=== PATIENT | female | born 1925 | race Caucasian/White ===

== ENCOUNTER 2016-06-30 05:40 | Inpatient (IN) ==
[2016-06-30] MEDS ORDERED: LR 1,000 ML ONE (06:10)
[2016-06-30] MEDS ORDERED: PEPCID ONE (06:26)
[2016-06-30] MEDS ORDERED: SOLU-CORTEF IV ONE (06:45)
[2016-06-30] MEDS ORDERED: XYLOCAINE-MPF 2% ONE (09:01)
--- NOTE | 2016-06-30 09:57 | Diag Imaging Result Document ---
PROCEDURE NAME: ECTOR ABDOMEN - 06/30/2016 ABDOMEN: COMPARISON: 05/09/2014. FINDINGS: There is a stable IVC filter. No bowel obstruction or free air. Numerous calcifications in the spleen are probably granulomas. IMPRESSION: No acute disease.
[2016-06-30] MEDS: SODIUM CHLORIDE 0.9% INJ SCH (10:50)
[2016-06-30] MEDS: PROTONIX IV SCH (10:50)
[2016-06-30] MEDS: CARAFATE LIQUID PO SCH ×2 (10:50→14:50)
[2016-06-30] MEDS: FLAGYL 250 MG/NS 250 MG/50 ML IVPB IV SCH ×2 (10:51→14:50)
[2016-06-30] MEDS ORDERED: HEPARIN 25,000 UNITS/D5W 25,000 UNIT/250 ML IV.SOLN IV SCH (11:00)
[2016-06-30 11:11] LABS: HEMATOCRIT 47.5 % (37.0-47.0); HEMOGLOBIN 14.7 g/dL (12.0-16.0); MCH 29.1 PG (27-31); MCHC 30.9 g/dL (33-37); MCV 93.9 FL (81-99); MPV 10.9 FL (7.4-10.4); RBC 5.06 XMIL (4.2-5.4)
[2016-06-30 11:17] LABS: INR 1.04
[2016-06-30] MEDS: LEVAQUIN 750 MG/D5W 750 MG/150 ML IVPB IV SCH (11:30)
[2016-06-30 11:41] LABS: AGAP 13; ALBUMIN 3.5 g/dL (3.5-5.0); ALKALINE PHOSPHATASE 95 U/L (32-104); BUN 14 mg/dL (8-22); CALCIUM 9.3 mg/dL (8.8-10.2); CHLORIDE 104 mmol/L (98-107); COSMO 291; GOT 16 U/L (10-30); GPT 11 U/L (10-36); POTASSIUM 4.1 mmol/L (3.5-5.1); SODIUM 145 mmol/L (136-145); TCO2 28 mmol/L (25-35); TOTAL BILIRUBIN 0.29 mg/dL (0.20-1.00); TOTAL PROTEIN 6.8 g/dL (6.3-8.3)
[2016-06-30 12:19] LABS: MAGNESIUM 1.7 mg/dL (1.5-2.7)
[2016-06-30] MEDS ORDERED: DIPRIVAN 1% ONE (12:20)
--- NOTE | 2016-06-30 13:33 | HISTORY AND PHYSICAL ---
CHIEF COMPLAINT: Abdominal pain. HISTORY OF PRESENT ILLNESS: Mrs. Neri is a 89-year-old female with multiple medical problems who was here for outpatient colonoscopy by Dr. Aliza Arreola. She has been having abdominal pain over the past few days and weeks and she ultimately had colonoscopy for definitive evaluation. She also has a history of PE and DVT with recent diagnosis of 2 DVTs in the right lower extremity, she has had a IVC filter placed as well. She was scheduled to start anticoagulation but needed a colonoscopy 1st to evaluate for any type of gastrointestinal bleeding. Colonoscopy revealed diverticulitis as well as gastric AVMs. Dr. Arreola called us and asked us to admit Mrs. Neri to the hospital for diverticulitis and anticoagulation management. Currently she is on the floor. Her vitals are stable. Labs have been ordered and are pending. With the exception of her abdominal pain, she has no other acute complaints at this time. PAST MEDICAL HISTORY: 1. Type 2 diabetes. 2. Vascular dementia. 3. Hypertension. 4. Hyperlipidemia. 5. CAD. 6. Vitamin D deficiency. 7. Polymyalgia rheumatica. 8. Chronic venous insufficiency. 9. Hypertension. 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 SURGICAL HISTORY: Is carotid endarterectomy, appendectomy, hysterectomy, ear surgery, thyroidectomy, ankle surgery, cataract surgery, section. SOCIAL HISTORY: Patient lives at [facility]. She has a remote history of tobacco abuse. She denies any tobacco, alcohol or drug use currently. REVIEW OF SYSTEMS: Fourteen-point review of systems was obtained and found to be negative with the exception of the HPI. HOME MEDICATIONS: Currently being compiled. ALLERGIES: To Demerol. PHYSICAL EXAMINATION: VITAL SIGNS: Blood pressure is 156/54, heart rate 78, respiratory rate 16, O2 saturation 95% on 2 L, temperature is 97.9 degrees. GENERAL: This is an elderly 89-year-old female lying in hospital bed in no acute distress. NEUROLOGIC: The patient is awake, alert and oriented. She follows commands without focal deficits. HEENT: Head is atraumatic and normocephalic. Her pupils are equal, round, reactive to light. Oral mucosa is moist. Trachea is midline. No JVD or carotid bruits. CHEST: Clear to auscultation bilaterally. CV: Regular rate and rhythm. S1-S2 is noted, 2/6 systolic ejection murmur noted. GI: Left lower quadrant tenderness to palpation. Overall belly soft, nondistended, nontender. Bowel sounds are active. EXTREMITIES: No edema, clubbing or cyanosis. Pulses are diminished but palpable bilaterally. DIAGNOSTIC DATA: Is all pending. ASSESSMENT AND PLAN: 1. Diverticulitis: Patient has already been placed on Levaquin and Flagyl per Dr. Arreola's orders. We will go ahead and check blood cultures and continue antibiotics. Check a full set of labs. 2. Gastric arterial venous malformations: Per management Dr. Arreola. The patient has been placed on Protonix IV b.i.d. 3. Recent diagnosis of deep vein thrombosis: The patient will be placed on a heparin drip with standard protocol and will monitor her bleeding times and any signs of bleeding closely. 4. Type 2 diabetes: Will add pattern sugars and sliding scale insulin. Check a hemoglobin A1c as well. 5. Hypertension: Chronic and stable, continue home medications once they have been compiled. 6. Coronary artery disease: Chronic and stable. Continue home medications, patient denies any chest pain or shortness of breath. 7. Hyperlipidemia: Chronic and stable, continue home medications once they have been compiled. 8. Polymyalgia rheumatica: Chronic and stable, continue home medications once they have been compiled. 9. Further recommendations to follow once full labs and diagnostics have returned. 10. Deep vein thrombosis prophylaxis will be provided with heparin drip. Further recommendations to follow. Dictated by JESÚS Leach for Abilio Power MD cc: JESÚS Leach MD
[2016-06-30] MEDS ORDERED: MORPHINE ONE (14:41)
[2016-06-30] MEDS ORDERED: HEPARIN IV ONE (16:51)
[2016-06-30] MEDS: MORPHINE IV PRN (20:24)
--- NOTE | 2016-06-30 21:51 | Diag Imaging Result Document ---
PROCEDURE NAME: ABDOMEN/PELVIS W/O CONTRAST - 06/30/2016 CT UROGRAM WITHOUT CONTRAST: FINDINGS: There is a fairly large bulla in the left upper lobe. There is worsened atelectasis or pneumonia in the left lower lobe compared to 05/07/2014. There are numerous granulomata in the spleen. There is a fairly high density perisplenic fluid collection which was not present at the time of the previous study of 05/07/2014. This may represent blood. It extends in the left pericolic gutter to slightly below the iliac crest. There are scattered granulomata in the liver. There is a small right pleural effusion which is also somewhat hyperdense. This was not present at the time of the previous study. There is an 18 mm right ovarian cyst. There is a vena cava filter. 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 This demonstrates a maximum diameter of 2.3 cm. There are no acute bony abnormalities. IMPRESSION: Hemoperitoneum. Worsened atelectasis or pneumonia left lower lobe. Small right pleural effusion. The findings were discussed with Dr. Arreola by telephone at 2119 hours.
--- NOTE | 2016-06-30 22:06 | CONSULTATION ---
DATE OF CONSULTATION: 06/30/2016 REFERRING PHYSICIAN: Abilio Power M.D. PRIMARY CARE PROVIDER: Kylee Siddiqui M.D. INDICATION FOR CONSULTATION: 1. Abdominal pain. 2. Diverticulitis. 3. Gastrointestinal bleeding secondary to gastric and colonic AVMs. HISTORY OF PRESENT ILLNESS: The patient is an 89-year-old white female who was evaluated in the hospital on 05/10/2014. At that time, she presented with rectal bleeding following a fall. She was on Coumadin and her level was supratherapeutic. Because of her recent fall episode and the risk of recurrent DVT, she was empirically treated for diverticulitis and received Anusol suppositories for presumed hemorrhoidal bleeding. Her symptoms resolved after a 5 day course of Anusol HC suppositories as well as antibiotics. She did well until November 2015 when she presented with dysphagia, melena and pneumonia. She was to have cricopharyngeal achalasia on a modified barium swallow. After her pneumonia was successfully treated, she underwent EGD with dilation. There was erosive gastritis and nonbleeding AVMs with no source of bleeding found. Her esophagus was dilated with 54-Tajik with interval resolution of her dysphagia. We recommended at that time, that her anticoagulation be resumed 72 hours postprocedure. Unfortunately, she was discharged to rehabilitation and her anticoagulation was never resumed. She presented to the office on 06/27/2016 with dysphagia, epigastric pain, left upper with lower quadrant pain, heartburn and indigestion. She has been found to have 2 DVTs in the right lower extremity. Because of the need to resume her anticoagulation, we were asked to perform endoscopic evaluation. Today, she underwent an EGD and colonoscopy. On EGD, she was found to have an esophageal diverticulum, visible bile reflux, Schatzki's ring without obstruction, erosive gastritis and a nonbleeding antral ulcer. She also had duodenitis. Biopsies were taken from the gastric and duodenal mucosa. In the colon, her terminal ileum, ileocecal valve, and appendiceal orifice were normal. In the ascending colon, she had 2 large hyperemic AVMs. Although they were not bleeding, they were cauterized. In the transverse colon, she had an actively bleeding AVM that was cauterized with black wire. Upon withdrawing the scope into the left colon, she had evidence of acute diverticulitis. Postprocedure, she complained of 8 to 10/10 left-sided abdominal pain. After she passed gas, the abdominal pain improved considerably. A KUB was obtained and there was no evidence of free air or obstruction. She continues to have abdominal pain on the left side in the area where acute diverticulitis was identified. She is admitted for further management. PAST MEDICAL HISTORY: 1. Diabetes mellitus type 2. 2. Vascular dementia. 3. Hearing loss. 4. Hypertension. 5. Hyperlipidemia. 6. Coronary artery disease. 7. Vitamin D deficiency. 8. Polymyalgia rheumatica. 9. Chronic venous insufficiency. 10. Hypertension. 11. DVT. 12. PE. 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 14. Diverticulosis. 15. Diverticulitis. 16. Hemorrhoids. 17. Depression. 18. GERD. 19. Metabolic encephalopathy. 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 PAST SURGICAL HISTORY: 1. Carotid endarterectomy. 2. Appendectomy. 3. Hysterectomy. 4. Ear surgery. 5. Thyroidectomy. 6. Ankle surgery. 7. Cataract surgery. 8. . SOCIAL HISTORY: The patient previously smoked, but has not smoked for a number of years. She denies alcohol or recreational drug use. REVIEW OF SYSTEMS: Since admission, is notable for left upper quadrant pain when she sits in a chair. When she is lying at rest, she reports minimal abdominal discomfort. MEDICATION ALLERGIES: Demerol. HOME MEDICATIONS: 1. Carafate. 2. Prednisone. 3. Potassium chloride. 4. MiraLAX. 5. Protonix. 6. Centrum multivitamin. 7. Theravite. 8. Elocon cream. 9. Jadiel antifungal cream. 10. Calmoseptine ointment. 11. Melatonin. 12. Icar-C. 13. Lasix. 14. Vitamin B12. 15. DuoNeb. 16. Tylenol. PHYSICAL EXAMINATION: Vital Signs: Blood pressure is 129/51, pulse 74, respirations 16, temperature of 97.4 degrees. HEENT: Negative for jaundice. Her conjunctivae are normal. Her oropharyngeal mucosal membranes are slightly dry. Pulmonary examination: Lungs are clear to auscultation with normal respiratory effort. Cardiovascular Examination: Reveals regular rate and rhythm with no gallops or rubs. A 2/6 systolic ejection murmur. Abdominal Examination: Reveals normoactive bowel sounds. The abdomen is soft, with persistent left upper quadrant tenderness. There is no rebound or guarding. It should be noted that her abdomen is considerably less distended than postprocedure. There is minimal abdominal distention and she is almost back to her baseline examination with the exception of mild left upper quadrant pain. She has no obvious peritoneal signs and is resting comfortably in bed. Extremities: Bilaterally are negative for cyanosis, clubbing, or edema. OBJECTIVE DATA: Reveals a hemoglobin of 14.7 with hematocrit of 47.1 and a white count of 8.0. She has 249,000 platelets. Her PT is 11 with an INR of 1.04. Her PTT is 27.2. Sodium is 145, potassium 4.1, chloride 104, CO2 28, BUN 14, creatinine 0.5 with a glucose of 133, calcium is 9.3. Total bilirubin 0.29, AST 16, ALT 11, alkaline phosphatase 95, total protein 6.8 , and albumin 3.5. Her plasma lactate is 0.8. Her CRP is mildly elevated at 5.45. Her magnesium is 1.7. IMPRESSION: 1. Mild acute diverticulitis. 2. Colonic and gastric arteriovenous malformations. 3. Deep vein thrombosis. 4. Left upper quadrant pain postprocedure. RECOMMENDATIONS: 1. She was placed on Levaquin and Flagyl pending her endoscopic evaluation. I would continue this to complete a 10 day course of antibiotics. 2. Because of her known ulcer disease, she has been placed on Protonix 40 mg q.12 hours. When she is ready to go home, I would place her on oral omeprazole or oral Protonix twice a day for 6 weeks and then resume once a day dosing. 3. She was also placed on Carafate suspension 1 g p.o. 4 times a day. At discharge I will place her on Carafate tablets 1 g 4 times a day which may be crushed and mixed in applesauce. 4. I suspect her abdominal pain is due to the diverticulitis. However, if her abdominal pain persists overnight, I would have a low threshold for obtaining a CT scan of the abdomen and pelvis. Her KUB was negative for perforation. However, she is extremely resistant to moving or getting out of the bed. This is an interval change for this patient which is somewhat concerning. Clinically, she has no physical stigmata of an acute abdomen. I will encourage the nurses to rotate her from side to side to help with dispersion of the abdominal gas. 5. Please monitor serial hemoglobin and hematocrit. 6. I agree with the heparin drip as she has 2 active DVTs in the right lower extremity. When we are certain that she has no other acute GI issues, I would transition her to Xarelto as an outpatient. cc: MD Abiloi Pedraza MD Kathy J. Sparacino, MD Heather Shah, MD MTDD
[2016-06-30 22:25] LABS: MANUAL DIFF NEEDED? NO
[2016-06-30 22:27] LABS: BASO% 0.3 % (0.0-0.8); EOS# 0.05 X1000 (0.0-0.7); EOS% 0.5 % (0.0-10.0); HEMATOCRIT 44.2 % (37.0-47.0); HEMOGLOBIN 13.8 g/dL (12.0-16.0); IMM GRAN# 0.04 X1000 (0.0-0.04); IMM GRAN% 0.4 % (0.0-0.5); LYMPH# 1.87 X1000 (1.2-3.4); LYMPH% 20.1 % (20.5-51.1); MCH 29.1 PG (27-31); MCHC 31.2 g/dL (33-37); MCV 93.2 FL (81-99); MONO# 0.98 X1000 (0.11-0.59); MONO% 10.5 % (1.7-9.3); MPV 10.9 FL (7.4-10.4); NEUT% 68.2 % (42.2-75.2); PLT 252 X1000 (130-400); RBC 4.74 XMIL (4.2-5.4)
[2016-06-30 22:38] LABS: INR 1.08; PROTIME 11.4 Seconds (9.2-11.7); PTT 35.1 Seconds (22.0-36.0)
[2016-07-01] MEDS: MORPHINE IV PRN ×2 (02:18→06:12)
[2016-07-01 02:26] LABS: MANUAL DIFF NEEDED? NO
[2016-07-01 02:28] LABS: BASO% 0.5 % (0.0-0.8); EOS% 0.9 % (0.0-10.0); HEMOGLOBIN 13.4 g/dL (12.0-16.0); IMM GRAN# 0.02 X1000 (0.0-0.04); IMM GRAN% 0.2 % (0.0-0.5); LYMPH# 2.09 X1000 (1.2-3.4); LYMPH% 19.7 % (20.5-51.1); MCH 29.1 PG (27-31); MCHC 31.2 g/dL (33-37); MCV 93.5 FL (81-99); MONO# 1.15 X1000 (0.11-0.59); MONO% 10.8 % (1.7-9.3); MPV 10.5 FL (7.4-10.4); NEUT% 67.9 % (42.2-75.2); PLT 224 X1000 (130-400)
[2016-07-01] MEDS: CARAFATE LIQUID PO SCH ×5 (03:28→21:02)
[2016-07-01] MEDS: FLAGYL 250 MG/NS 250 MG/50 ML IVPB IV SCH ×5 (03:30→21:02)
[2016-07-01] MEDS: PROTONIX IV SCH ×2 (04:25→15:35)
[2016-07-01 06:36] LABS: HEMATOCRIT 43.2 % (37.0-47.0); HEMOGLOBIN 13.2 g/dL (12.0-16.0); MCH 29.1 PG (27-31); MCHC 30.6 g/dL (33-37); MCV 95.2 FL (81-99); MPV 11.1 FL (7.4-10.4); RBC 4.54 XMIL (4.2-5.4)
[2016-07-01 06:53] LABS: AGAP 13; BUN 17 mg/dL (8-22); CALCIUM 9.8 mg/dL (8.8-10.2); CHLORIDE 103 mmol/L (98-107); COSMO 284; POTASSIUM 3.4 mmol/L (3.5-5.1); SODIUM 142 mmol/L (136-145); TCO2 26 mmol/L (25-35)
--- NOTE | 2016-07-01 07:36 | CONSULTATION ---
DATE OF CONSULTATION: 07/01/2016 REQUESTING PHYSICIAN: Dr. Aliza Arreola. REASON FOR CONSULTATION: Consult concerning possible splenic bleed. HISTORY OF PRESENT ILLNESS: An 89-year-old female with multiple medical problems initially presenting for an outpatient colonoscopy by Dr. Arreola. She had been having abdominal pain prior to her presentation, and that was the reason for her colonoscopy. During the colonoscopy, it was found that she had some mild diverticulitis as well as some gastric AVMs. When she was admitted to the floor afterwards for treatment of her diverticulitis, she did have increased abdominal pain and subsequently had a CT scan. There was some free fluid in her abdomen concerning for hemoperitoneum and there was some concern that she might have a splenic laceration, although there is no active injury noted on the CT scan to the spleen. The patient was started on serial hematocrits which have been relatively stable. Her vital signs have been stable. She did initially have a heparin drip that was stopped. This was because she has had a history of DVT and PE, although, she is status post IVC filter placement. She is still complaining of some pain on the left side, but it is difficult to get a full evaluation of the pain from the patient. There are family members in the room who give some more detail. I did discuss her case with Dr. Arreola over the phone. PAST MEDICAL HISTORY: Diabetes mellitus, type 2, vascular dementia, hypertension, hyperlipidemia, coronary artery disease, vitamin D deficiency, polymyalgia rheumatica, chronic venous insufficiency, history of DVT and PE, cricopharyngeal hypertrophy. PAST SURGICAL HISTORY: Carotid endarterectomy, appendectomy, hysterectomy, unspecified ear surgery, thyroidectomy, ankle surgery, cataract surgery, , and IVC filter placement. SOCIAL HISTORY: She lives at a [facility]. FAMILY HISTORY: Reviewed with patient but noncontributory. HOME MEDICATIONS: Reviewed and MAR reviewed. Of note, she is on Levaquin, Flagyl currently. ALLERGIES: Demerol. REVIEW OF SYSTEMS: A full 10-point review of systems obtained, negative except as specified in HPI. PHYSICAL EXAMINATION: Vital Signs: The patient is currently afebrile. Her vital signs have been stable. General: No acute distress. female, looks stated age. HEENT : Normocephalic, atraumatic. Pupils equal, round, reactive to light. Mucous membranes moist. Oropharynx benign. Neck supple. Trachea midline. Cardiovascular: Regular rate and rhythm. There is a mild systolic ejection murmur noted. Lungs grossly clear. Abdomen soft. Some left-sided abdominal tenderness but no peritoneal signs. Extremities: Moves all extremities. Neurologic: Grossly intact. Skin: No signs of jaundice. Vascular: All extremities perfused. LABORATORY: Most recent white blood cell count is 10. Most recent hematocrit 43. Most recent platelet count 224,000. IMAGING: CT scan independently reviewed and radiology report reviewed. ASSESSMENT AND PLAN: An 89-year-old female with diverticulitis, possible splenic laceration and multiple medical comorbidities. 1. Diverticulitis. At this time, she has been started on Levaquin and Flagyl per Dr. Arreola. She did have evidence on colonoscopy of mild active diverticulitis. The CT scan does not suggest a significant degree of complications from the diverticulitis, so I agree with the antibiotic regimen. Her white blood cell count is normal so could consider, once her abdominal pain starts to improve, transitioning over to p.o. antibiotics. 2. Possible splenic injury. At this time, I would hold on the heparin drip. We will trend her hematocrits at this time. I do not have an indication to intervene surgically. I do not see an active laceration noted to the spleen. I recommend monitoring for now. 3. History of recent deep venous thrombosis and pulmonary embolus. The patient was initially started on heparin drip. She does have an IVC filter so potentially hold off on any kind of anticoagulation given the protection with an IVC filter. We could essentially view this as a contraindication to anticoagulation and justification for the placement of the IVC filter, but she already has it. So, again, could hold off on anticoagulation if clinically needed. 4. Multiple medical comorbidities currently being managed by the hospitalist service. I appreciate the consult. I will continue to follow the patient with you. No immediate plans for surgical intervention. cc: Solo Guaman MD MTDD
--- NOTE | 2016-07-01 10:13 | Diag Imaging Result Doc PS360 ---
CHEST-PORTABLE - 07/01/2016 INDICATION: Pleural effusion COMPARISON: 02/25/2016 FINDINGS: Stable severe right hemidiaphragm elevation. Stable ill-defined atelectasis or fibrosis in the right upper lobe. This is also true for the left lung base. Heart size remains borderline enlarged. IMPRESSION: No change from prior. Nonspecific findings. Electronically signed by Russell Nielsen 07/01/2016 10:10 AM
--- NOTE | 2016-07-01 10:36 | PROGRESS NOTE ---
DATE: 07/01/2016 SUBJECTIVE: This patient is resting comfortably on the bed. Family members at the bedside. This patient is sleepy. Apparently, she received a dose of morphine in the morning and since then, she is resting. Surgery department and gastroenterology department are following this patient. OBJECTIVE: Vital Signs: Temperature 97.7 degrees, pulse 70, respiratory rate 18, blood pressure 119/50, oxygen saturation 93 on room air. HEENT: Head normocephalic. No trauma. PERRLA. Neck: Supple. No JVD. No masses. Central trachea. Chest: Clear to auscultation. No wheezing. No rales. Cardiovascular: RRR. A 2/6 systolic murmur. Abdomen: Soft. Mild tenderness to palpation at the level of the left lower quadrant. Nondistended. Positive bowel sounds. Extremities: No edema. No clubbing. No cyanosis. Neurological Examination: The patient is sleepy at the moment of my evaluation. As per the family members, she spent the whole might awake and she finally got some sleep today in the morning. Laboratory: WBC 9.4, hemoglobin 13.2, hematocrit 43.2, platelets 226,000. Sodium 142, potassium 3.4, chloride 103, bicarbonate 26, BUN 17, creatinine 0.5, glucose 87, calcium 9.8. ASSESSMENT AND PLAN: 1. Diverticulitis. We will continue with Levaquin and Flagyl per Dr. Arreola's orders. So far, the blood cultures have been negative. We will continue to monitor this. This patient has been placed nothing per oral. I will start this patient on gentle hydration. 2. Gastric arteriovenous malformation. Continue with Protonix. 3. Recent diagnosis of deep venous thrombosis. This patient has an inferior vena cava filter. She is not on anticoagulation at this moment. We have a CT scan of the abdomen that showed hemoperitoneum. We will monitor. 4. Type 2 diabetes. Continue with the same management. Her blood sugar has been stable today. Blood sugar is 87. 5. Hypertension. This is chronic and stable. Blood pressure is controlled. 6. History of coronary artery disease. She is not complaining of chest pain or shortness of breath. Continue to monitor. 7. Hyperlipidemia. Continue to monitor. 8. Polymyalgia rheumatica. She is not complaining of any problems at this moment related with polymyalgia rheumatica. We will monitor. 9. Deep vein thrombosis prophylaxis. This patient has an inferior vena cava filter. Also, she has a history of deep venous thrombosis. For now, we are not going to start any anticoagulation. 10. Known ulcer disease. Continue with Protonix. cc: Jorge Alberto Castellon MD
[2016-07-01] MEDS: D5 NS 1,000 ML IV SCH (11:03)
[2016-07-01 11:53] LABS: URINE SOURCE CATH
[2016-07-01 11:57] LABS: BILIRUBIN URINE NEGATIVE (NEGATIVE); BLOOD URINE LARGE (NEGATIVE); COLOR ORANGE; GLUCOSE URINE NEGATIVE (NEGATIVE); LEUKOCYTES URINE LARGE (NEGATIVE); NITRITE URINE NEGATIVE (NEGATIVE); PROTEIN URINE 200 mg/dL (NEGATIVE); SP GRAVITY URINE 1.022; TURBIDITY URINE TURBID (CLEAR); UROBILINOGEN URINE NORMAL (NORMAL)
[2016-07-01 12:13] LABS: UR EPITHELIAL CELLS >10 /HPF (<10); URINE BACTERIA NEGATIVE /HPF; URINE CULTURE NEEDED? YES; URINE MICRO REVIEW NEEDED? YES; URINE RBC TNTC /HPF (<10); URINE WBC TNTC /HPF (<10)
[2016-07-01 12:14] LABS: URINE CASTS NONE SEEN
[2016-07-01] MEDS: LEVAQUIN 750 MG/D5W 750 MG/150 ML IVPB IV SCH (12:14)
[2016-07-01] MEDS: SODIUM CHLORIDE 0.9% INJ SCH (15:35)
--- NOTE | 2016-07-01 22:09 | PROGRESS NOTE ---
DATE: 07/01/2016 SUBJECTIVE: The patient was seen earlier this evening on rounds. She states that the abdominal pain has resolved. She was in tears because she felt that she had done something wrong that caused her to be readmitted to the hospital. She notes that she frequently gets depressed when she is at the assisted. She denies chest pain, shortness of breath, nausea with vomiting and fever with chills. She complains of hunger and is asking for something to drink. Overall, she reports having a good day. Unfortunately, she has had no bowel movement this admission. PHYSICAL EXAM: General: She is in no acute distress but has a very flat affect this evening. She is easily tearful. Vital signs: Her blood pressure is 112/51, pulse 88, respiration 22, temperature of 97.6 degrees. Pulmonary: Lungs are clear to auscultation with normal expiratory effort. Cardiovascular Exam: Reveals regular rate and rhythm with occasional ectopy. There is a 2/6 systolic murmur. Abdomen: Soft with mild to moderate tenderness in the left mid and left lower quadrant. There is no rebound or guarding. She has minimal tenderness in the left upper quadrant. Extremities: Bilaterally are negative for cyanosis, clubbing or edema. Neurologic: She is alert and oriented x3. OBJECTIVE DATA: Reveals a hemoglobin of 13.2 with hematocrit of 43.2 and white count of 9.48. She has 226,000 platelets. Sodium is 142, potassium 3.4, chloride 103, CO2 26, BUN 17, creatinine 0.5 with a glucose of 87 and calcium of 9.8. RECOMMENDATION: 1. The patient had mild diverticulitis on colonoscopy. I recommend completion of a 10-day course of Levaquin and Flagyl and then stop. 2. She had gastric arterial venous malformations as well as gastritis on EGD. I would continue the Protonix. 3. She had hemoperitoneum with fluid around her spleen which is improved with conservative management. I will continue to monitor. Her hemoglobin has remained stable and her pain is better. 4. Constipation: The patient has had constipation since her colonoscopy. I would monitor for the next 1-2 days. She may require the assistance of MiraLAX. 5. The patient is asking for something to eat or drink. I would limit her intake to clear liquids pending evaluation from Dr. Guaman. 6. Await biopsy results. 7. Her blood count remains stable. I would continue serial testing. 8. I will consult with Dr. Ashly Lal tomorrow regarding her anticoagulation. At this time, I would continue to hold any anticoagulation given her bleeding. This event represents an absolute contraindications to anticoagulation in the future. 9. Her depression may need evaluation and treatment once this issue resolves. 10. Additional recommendations to follow based on her clinical course. 11. She will need clinic evaluation 4-6 weeks after hospital discharge. cc: Jorge Alberto Castellon MD MTDD
--- NOTE | 2016-07-01 23:53 | OPERATIVE NOTE ---
PROCEDURE DATE: 06/30/2016 REFERRING PHYSICIAN: Kylee Siddiqui M.D. INDICATION FOR PROCEDURE: 1. Dysphagia. 2. Heartburn. 3. Indigestion. 4. Abdominal pain. 5. Need to assess the gastrointestinal tract prior to anticoagulation. PROCEDURE PERFORMED: Esophagogastroduodenoscopy with biopsy. CONSENT: Informed consent was obtained from the patient prior to the procedure. The risks, benefits, and alternatives were discussed with the patient and her daughter. MEDICATIONS: The patient received monitored anesthesia care. PERFORMING PHYSICIAN: Aliza Arreola M.D. ASSISTANTS: 1. [facility] 2. Krystle Becerra RN. 3. Kylee Wilkerson CRNA. 4. Oziel Bateman M.D. (anesthesia). COMPLICATIONS: There were no complications. ESTIMATED BLOOD LOSS: 1-2 mL. SPECIMENS REMOVED: 1. In jar #1, there were duodenal biopsies. 2. In jar #2, there were gastric biopsies. FINDINGS: After sedation was achieved, the upper endoscope was inserted to the 2nd portion of the duodenum. The hypopharynx and tubular esophagus appeared endoscopically normal. 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 Throughout the entire intubation of the esophagus, there was visible reflux from the gastric lumen. There was a nonobstructive Schatzki ring at the GE junction which was measured at 40 cm from the incisors. There was a hiatal hernia that spanned from 40-44 cm. In the gastric lumen, there was erosive gastritis. There were scattered deep erosions in the antrum, fundus and body. There was a 9-10 mm superficial whitish based ulcer in the antrum with no stigmata of bleeding. The pylorus appeared endoscopically normal. In the duodenum, there was evidence of erythema and erosions consistent with duodenitis. After the exam was complete, biopsies were taken from the duodenal and gastric mucosa. Upon withdrawing of the scope, there were no gastric or esophageal varices. There was no Forrester esophagus. It should be noted that the biopsy sites were cauterized due to the need for anticoagulation postprocedure. IMPRESSION: 1. Midesophageal diverticulum. 2. Visible gastroesophageal reflux disease. 3. Schatzki ring. 4. Hiatal hernia. 5. Erosive gastritis. 6. Antral ulcer. 7. Duodenitis. RECOMMENDATION: 1. Await biopsy results. 2. Increase Protonix to 40 mg daily. She is currently taking a 20 mg dose. 3. Increase Carafate to 1 g p.o. 4 times a day for 12 weeks and then stop. 4. Will proceed with a colonoscopy as previously scheduled. cc: Kylee Siddiqui MD MTDD
[2016-07-02] MEDS: MORPHINE IV PRN ×4 (00:09→13:26)
--- NOTE | 2016-07-02 00:30 | OPERATIVE NOTE ---
PROCEDURE DATE: 06/30/2016 REFERRING PHYSICIAN: Dr. Kylee Siddiqui M.D. INDICATION FOR CONSULTATION: 1. Abdominal pain. 2. Rectal bleeding. PROCEDURE PERFORMED: Colonoscopy, with control of bleeding. CONSENT: Informed consent was obtained from the patient prior to the procedure. The risks, benefits, and alternatives were discussed with the patient and her daughter. MEDICATION: The patient received monitored anesthesia care. PERFORMING PHYSICIAN: Aliza Arreola M.D. ASSISTANTS: 1. [facility] 2. Krystle Becerra RN. 3. Kylee Wilkerson CRNA. 4. Oziel Bateman M.D. (anesthesia). COMPLICATIONS: There were no complications during the procedure. ESTIMATED BLOOD LOSS: 1-2 mL. SPECIMENS REMOVED: None. CECAL INTUBATION TIME: 8 minutes. WITHDRAWAL TIME: 11 minute. PREP QUALITY: Fair. FINDINGS: After the EGD was performed, the colonoscope was inserted to the terminal ileum. The terminal ileum, ileocecal valve, and appendiceal orifice appeared endoscopically normal. Upon withdrawal, there were 2 very hyperemic and raised AVMs in the ascending colon, with no active bleeding. They were cauterized using black wire cautery. The remaining ascending colon mucosa appeared endoscopically normal. In the transverse colon, there was an actively bleeding AVM that was cauterized using the black wire cautery. Throughout the entire colon, there was moderate-to- severe diverticulosis. In the sigmoid colon, there was ecchymoses, erythema, and a small amount of exudate in the sigmoid diverticula, consistent with mild sigmoid diverticulitis. In the upper rectum, there were grade 2 internal hemorrhoids. On retroflexed view, there were medium external hemorrhoids that were slightly inflamed. After the exam was complete, lumen was decompressed, and the scope was removed without incident. IMPRESSION: 1. 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 2. Pandiverticulosis. 3. Diverticulitis in the sigmoid colon. 4. Grade 2 internal hemorrhoids. 5. Medium external hemorrhoids. RECOMMENDATION: 1. Await biopsy results. 2. In light of the patient's left lower quadrant tenderness, await biopsy results. 3. Begin Levaquin and Flagyl for the mild diverticulitis. 4. The patient had pain post procedure. Her KUB showed no evidence of bowel perforation. Admit to the floor for further evaluation. (see post procedure addendum noted below ) 5. As long as she continues to remain stable, I would resume anticoagulation with Lovenox or a heparin drip on 07/01/2016. 6. Additional recommendations to follow based on her clinical course. ADDENDUM: The patient continued to have abdominal pain postprocedure. CT scan revealed hemoperitoneum with fluid around the spleen, left pneumonia, and a right pleural effusion. The effusion and pneumonia were thought to be older. The blood around the spleen was thought to be new. The patient responded to conservative management. The patient's hemoglobin has remained stable. She has been hemodynamically stable as well as afebrile. She is receiving antibiotics and fluids. The plan is for continued medical monitoring. Surgery is following. cc: MD Kylee Pedraza MD MTDD
[2016-07-02] MEDS: PROTONIX IV SCH ×2 (02:33→15:04)
[2016-07-02] MEDS: CARAFATE LIQUID PO SCH ×4 (02:33→20:25)
[2016-07-02] MEDS: FLAGYL 250 MG/NS 250 MG/50 ML IVPB IV SCH ×4 (03:06→20:25)
[2016-07-02 06:13] LABS: MANUAL DIFF NEEDED? NO
--- NOTE | 2016-07-02 06:19 | PROGRESS NOTE ---
DATE: 07/02/2016 SUBJECTIVE: No major issues. OBJECTIVE: Vital Signs: Patient is currently afebrile. Her vital signs are stable. General Examination: No acute distress. HEENT: Normocephalic and atraumatic. Pupils equal, round, react to light. Mucous membranes moist. Oropharynx benign. Neck: Supple. Trachea midline. Cardiovascular: Regular rate and rhythm. Lungs: Grossly clear. Abdomen: Soft. Some mild tenderness suprapubically but no peritoneal signs. Extremities: Moves all extremities well. Neurologic: Grossly intact. Skin: No signs of jaundice. Vascular: All extremities perfused. Laboratory: Currently pending but her most recent hematocrit yesterday was 43.2 which is essentially stable. ASSESSMENT/PLAN: An 89-year-old, female with mild diverticulitis and possible splenic laceration. 1. Diverticulitis. At this time, patient is on Levaquin and Flagyl per Dr. Arreola. Suspect, that given her overall picture, she can likely be advanced on her diet. We will defer further management to Dr. Arreola. 2. Possible splenic injury. At this time, patient's hematocrit has been stable. No indication for surgical intervention. 3. Multiple medical comorbidities currently being managed by the hospitalist service. cc: Solo Guaman MD
[2016-07-02 06:29] LABS: BASO% 0.3 % (0.0-0.8); EOS# 0.14 X1000 (0.0-0.7); EOS% 1.9 % (0.0-10.0); HEMATOCRIT 40.3 % (37.0-47.0); HEMOGLOBIN 12.3 g/dL (12.0-16.0); IMM GRAN# 0.02 X1000 (0.0-0.04); IMM GRAN% 0.3 % (0.0-0.5); LYMPH# 1.31 X1000 (1.2-3.4); LYMPH% 17.4 % (20.5-51.1); MCH 29.1 PG (27-31); MCHC 30.5 g/dL (33-37); MCV 95.3 FL (81-99); MONO# 0.72 X1000 (0.11-0.59); MONO% 9.6 % (1.7-9.3); MPV 11.1 FL (7.4-10.4); NEUT% 70.5 % (42.2-75.2); PLT 197 X1000 (130-400); RBC 4.23 XMIL (4.2-5.4)
[2016-07-02 06:34] LABS: AGAP 9; BUN 15 mg/dL (8-22); CALCIUM 8.9 mg/dL (8.8-10.2); CHLORIDE 105 mmol/L (98-107); COSMO 283; POTASSIUM 3.4 mmol/L (3.5-5.1); SODIUM 142 mmol/L (136-145); TCO2 28 mmol/L (25-35)
--- NOTE | 2016-07-02 07:06 | Diag Imaging Result Doc PS360 ---
EXAM: CHEST-PORTABLE HISTORY: Pleural effusion COMMENT: The inspiration is markedly suboptimal. There may be some subsegmental atelectasis in the lung bases. This would also include the lingula. Considering differences in technique there has been no appreciable change since 07/01/2016. IMPRESSION: Basilar atelectasis. Poor inspiration. Electronically signed by Yasmany Jorgensen 07/02/2016 7:03 AM
[2016-07-02] MEDS: D5 NS 1,000 ML IV SCH (07:15)
[2016-07-02] MEDS: LEVAQUIN 750 MG/D5W 750 MG/150 ML IVPB IV SCH (11:55)
[2016-07-02] MEDS: SODIUM CHLORIDE 0.9% INJ SCH (15:04)
[2016-07-02] MEDS: DULCOLAX PR ONE ×2 (15:05→16:15)
--- NOTE | 2016-07-02 15:33 | PROGRESS NOTE ---
DATE: 07/02/2016 SUBJECTIVE: This patient is resting comfortably on the bed. Family members at the bedside. This patient is completely alert and oriented; this is her baseline. She has a baseline also of dementia. Surgery Department and Gastroenterology Department are following this patient. OBJECTIVE: Vital Signs: Temperature 98 degrees, pulse 84, respiratory rate 19, blood pressure 122/54, oxygen saturation 91% on room air. HEENT: Head normocephalic. No trauma. PERRLA. Neck supple. No JVD. No masses. Central trachea. Chest clear to auscultation. No wheezing. No rales. Cardiovascular: RRR. 2/6 systolic murmur. Abdomen is soft. Mild tenderness to palpation at the level of the suprapubic area. Nondistended. Positive bowel sounds. Extremities: No edema. No clubbing. No cyanosis. Neurologic: The patient is alert, and she is oriented x1. LABORATORY: WBC 7.5, hemoglobin 12.3, hematocrit 40.3, platelet 197,000. Sodium 142, potassium 3.4, chloride 105, bicarbonate 28. BUN 15, creatinine 0.5, glucose 86. Calcium 8.9. ASSESSMENT AND PLAN: 1. Diverticulitis. We will continue with Levaquin and Flagyl per Dr. Arreola's orders. So far, blood cultures have been negative. We will continue to monitor this patient. I advanced the diet. She was getting clear liquid diet, and I advanced it to a full liquid diet. 2. Gastric arteriovenous malformation. Continue with Protonix. 3. Recent diagnosis of deep venous thrombosis. This patient has an IVC filter. She is not on anticoagulation at this moment. We have a CT scan of the abdomen that showed hemoperitoneum, I do not think she needs anticoagulation at this moment because of the abdominal bleed and the IVC filter. 4. Type 2 diabetes. Continue with the same management. 5. Hypertension, chronic and stable. 6. History of coronary artery disease. She is not complaining of chest pain or shortness of breath. 7. Hyperlipidemia. Continue to monitor. 8. Polymyalgia rheumatica. She is not complaining of any problems at this moment related with this pathology. 9. Deep vein thrombosis prophylaxis. This patient has an IVC filter. Also, she has a history of deep venous thrombosis. For now, we are not going to start any anticoagulation. 10. Known ulcer disease. Continue with Protonix. cc: Jorge Alberto Castellon MD
--- NOTE | 2016-07-02 21:34 | PROGRESS NOTE ---
DATE: 07/02/2016 SUBJECTIVE: The patient states that she feels much better today. The abdominal pain has resolved. She just received a suppository, but has not had a bowel movement this admission. Overall, she reports that her appetite is still not back to baseline, but she is feeling significantly better. OBJECTIVE: Vital signs: Blood pressure is 122/54, pulse of 84, respiration 19 , temperature of 98 degrees. Pulmonary: Lungs are clear to auscultation anteriorly. Cardiovascular: She has a regular rhythm. There are no gallops or rubs. She has a 2/6 systolic murmur. Abdominal: Reveals normoactive bowel sounds. The abdomen is soft and nontender today. OBJECTIVE DATA: Reveals a hemoglobin of 12.3 with hematocrit of 40.3, and a white count 7.51. She has 197,000 platelets. Sodium is 142, potassium 3.4, chloride 105, CO2 28, BUN 15, creatinine 0.5, with a glucose of 86 and a calcium of 8.9. RECOMMENDATION: 1. From a Gastroenterology perspective, she has been hemodynamically stable after her hemoperitoneum. Because of her intra-abdominal bleed, she is not a candidate for anticoagulation. This was confirmed in my discussion with Dr. Ashly Lal earlier today. 2. Because she is doing well and her blood count has been stable, I would advance her diet. 3. Once she has a bowel movement and is tolerating her diet, she is stable for discharge and outpatient management from a Gastroenterology perspective. 4. She should return to clinic in 4 weeks for reassessment. 5. Additional recommendations to follow based on her clinical course. cc: MD Kylee Pedraza MD Omar J. Sosa-Chirinos, MD MTDD
[2016-07-03] MEDS: FLAGYL 250 MG/NS 250 MG/50 ML IVPB IV SCH ×4 (04:01→20:31)
[2016-07-03] MEDS: SODIUM CHLORIDE 0.9% INJ SCH ×2 (04:01→14:13)
[2016-07-03] MEDS: D5 NS 1,000 ML IV SCH ×2 (04:01→09:08)
[2016-07-03] MEDS: CARAFATE LIQUID PO SCH ×4 (04:01→20:31)
[2016-07-03] MEDS: PROTONIX IV SCH ×2 (04:01→14:13)
[2016-07-03 06:16] LABS: HEMOGLOBIN 11.9 g/dL (12.0-16.0); MCH 29.3 PG (27-31); MCHC 30.5 g/dL (33-37); MCV 96.1 FL (81-99); MPV 11.2 FL (7.4-10.4); RBC 4.06 XMIL (4.2-5.4)
[2016-07-03 06:35] LABS: AGAP 9; BUN 8 mg/dL (8-22); CALCIUM 8.7 mg/dL (8.8-10.2); CHLORIDE 106 mmol/L (98-107); COSMO 280; POTASSIUM 3.3 mmol/L (3.5-5.1); SODIUM 141 mmol/L (136-145); TCO2 26 mmol/L (25-35)
--- NOTE | 2016-07-03 06:53 | PROGRESS NOTE ---
DATE: 07/03/2016 SUBJECTIVE: No major issues. Reviewed notes from other physicians. OBJECTIVE: Vital Signs: Patient is currently afebrile. Her vital signs are stable. General Examination: No acute distress. Resting comfortably. HEENT: Normocephalic and atraumatic. Pupils equal, round, reactive to light. Mucous membranes moist. Oropharynx benign. Neck: Supple. Trachea midline. Cardiovascular: Regular rate and rhythm. Lungs: Grossly clear. Abdomen: Soft. Decreased tenderness to palpation. No peritoneal signs. Extremities: Moves all extremities. Neurologic: Grossly intact but patient is resting. Skin: No signs of jaundice. Vascular: All extremities perfused. Laboratory: None from this morning as of yet. Hematocrit from yesterday was 40.3. ASSESSMENT/PLAN: An 89-year-old, female with mild diverticulitis and possible splenic laceration. 1. Diverticulitis. At this time, the patient is being managed by Dr. Arreola, on p.o. antibiotics. Her overall clinical picture is improving. We will defer further treatment to Dr. Arreola. 2. Possible splenic injury. At this time, patient's hematocrit is okay. No indication for surgical intervention at this time. 3. Multiple medical comorbidities currently being managed by the hospitalist service. 4. At this time, the patient has been relatively stable. I will be available if needed. cc: Solo Guaman MD
[2016-07-03] MEDS ORDERED: KLOR-CON PO ONE (07:39)
[2016-07-03] MEDS: MORPHINE IV PRN ×3 (12:29→20:30)
[2016-07-03] MEDS: LEVAQUIN 750 MG/D5W 750 MG/150 ML IVPB IV SCH (12:30)
--- NOTE | 2016-07-03 14:45 | PROGRESS NOTE ---
DATE: 07/03/2016 SUBJECTIVE: This patient is resting comfortably on the bed. No family members at the bedside. This patient is alert and she is oriented x1. Probably, this is her baseline because she has dementia. Surgery Department and Gastroenterology Department have been following this patient. This patient is getting better and Dr. Arreola from the Gastroenterology Department suggested to discharge this patient if she tolerates p.o. and has a bowel movement. In fact, she had a bowel movement and she is tolerating about 50% of her food, but she is still complaining of moderate abdominal pain, so I am going to keep this patient 1 more day. This patient is 89 years old. OBJECTIVE: Vital Signs: Temperature 97.9 degrees, pulse 83, respiratory rate 18, blood pressure 123/56, and oxygen saturation 100% on 2L of nasal cannula. HEENT: Head normocephalic. No trauma. PERRLA. Neck: Supple. No JVD. No masses. Central trachea. Chest: Clear to auscultation. No wheezing. No rales. Cardiovascular: RRR. A 2 out of 6 systolic murmur. Abdomen: Soft. Tenderness to palpation at the level of the suprapubic area and periumbilical area. Positive bowel sounds. Extremities: No edema. No clubbing. No cyanosis. Neurological: The patient is alert and she is oriented x1. LABORATORY: WBC 7.2, hemoglobin 11.9, hematocrit 39, platelets 171,000. Sodium 141, potassium 3.3, chloride 106, bicarbonate 26, BUN 8, creatinine 0.4, glucose 99, calcium 8.7. ASSESSMENT AND PLAN: 1. Diverticulitis. We will continue with Levaquin and Flagyl, per Dr. Arreola's order. So far, blood culture has been negative. Her diet has been advanced to regular diet. I will monitor this patient for 1 more day to see how she does and, hopefully, I want to be able to discharge this patient tomorrow. 2. Gastric arteriovenous malformation. Continue with Protonix. 3. Recent diagnosis of deep vein thrombosis. This patient has an inferior vena cava filter. She is not on anticoagulation at this moment. Given the fact that the hand we have a CT scan of the abdomen that showed hemoperitoneum, I do not think she needs anticoagulation at this moment because of her abdominal bleed and inferior vena cava filter. 4. Type 2 diabetes. Continue with the same management. 5. Hypertension, chronic and stable. 6. History of coronary artery disease. She is not complaining of chest pain at this moment or shortness of breath. 7. Hyperlipidemia. Continue to monitor. 8. Polymyalgia rheumatica. She is not complaining of any problems at this moment related to this pathology. 9. Deep vein thrombosis prophylaxis. This patient has an inferior vena cava filter. 10. Known ulcer disease. Continue with Protonix. cc: Jorge Alberto Castellon MD
[2016-07-04] MEDS: MORPHINE IV PRN ×4 (01:34→15:50)
--- NOTE | 2016-07-04 01:35 | PROGRESS NOTE ---
DATE: 07/03/2016 SUBJECTIVE: The patient states that she is feeling much better today. Although she had abdominal pain this morning, it resolved once she was able to pass gas. She notes that she has minimal abdominal discomfort. 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 She states that she is ready to go home, and is not sure why she has to remain in the hospital any further, since she has no active bleeding. PHYSICAL EXAMINATION: General: She is in no acute distress. Vital Signs: Her blood pressure is 123/53, pulse rate of 87, respiration 18, temperature of 97.7 degrees. Pulmonary: Lungs are clear anteriorly. She has decreased breath sounds in the bases bilaterally. Cardiovascular: Regular rate and rhythm, with no gallops or rubs. Abdominal: Normoactive bowel sounds. The abdomen is soft, with [id number] left lower quadrant tenderness, but no rebound or guarding. Her abdomen is slightly firm, but it is significantly less tender compared with our exam on 07/02/2016. There is no rebound or guarding. There is no obvious ecchymoses on the skin. Extremities: Bilaterally are negative for cyanosis, clubbing, or edema. OBJECTIVE DATA: Reveals a hemoglobin of 11.9, with hematocrit of 39.0 and a white count of 7.25. She has 171,000 platelets. Sodium is 141, potassium 3.3, chloride 106, CO2 26, BUN 8, creatinine 0.4, with a glucose of 99. Calcium of 8.7. RECOMMENDATIONS: 1. Clinically, the patient is doing significantly better. Her abdomen is less tender, but her hemoglobin continues to drop. I would continue to monitor for another 24-48 hours, as I am concerned about persistent intra-abdominal bleeding. 2. She is tolerating about 50% of her diet today, and has had a bowel movement. She has had both a suppository stimulated bowel movement, and 2 spontaneous bowel movements today. There is no evidence of bleeding. 3. Continue antibiotics for the treatment of diverticulitis. 4. Continue Protonix for the gastritis and the arteriovenous malformations in the gastric lumen. 5. The patient has contraindications to anticoagulation, most notably, gastrointestinal bleeding. 6. Additional recommendations to follow based on her clinical course. cc: MD Kylee Pedraza MD Omar J. Sosa-Chirinos, MD
[2016-07-04] MEDS: FLAGYL 250 MG/NS 250 MG/50 ML IVPB IV SCH ×4 (03:38→20:45)
[2016-07-04] MEDS: SODIUM CHLORIDE 0.9% INJ SCH ×2 (03:38→14:31)
[2016-07-04] MEDS: PROTONIX IV SCH ×2 (03:38→14:31)
[2016-07-04] MEDS: CARAFATE LIQUID PO SCH ×4 (05:23→20:45)
[2016-07-04 08:05] LABS: MANUAL DIFF NEEDED? NO
[2016-07-04 08:09] LABS: BASO% 0.2 % (0.0-0.8); EOS# 0.17 X1000 (0.0-0.7); EOS% 2.1 % (0.0-10.0); HEMATOCRIT 42.2 % (37.0-47.0); HEMOGLOBIN 12.9 g/dL (12.0-16.0); IMM GRAN# 0.02 X1000 (0.0-0.04); IMM GRAN% 0.2 % (0.0-0.5); LYMPH# 1.41 X1000 (1.2-3.4); LYMPH% 17.1 % (20.5-51.1); MCH 28.9 PG (27-31); MCHC 30.6 g/dL (33-37); MCV 94.4 FL (81-99); MONO% 9.7 % (1.7-9.3); MPV 11.2 FL (7.4-10.4); NEUT% 70.7 % (42.2-75.2); PLT 174 X1000 (130-400); RBC 4.47 XMIL (4.2-5.4)
[2016-07-04 08:26] LABS: AGAP 10; BUN 7 mg/dL (8-22); CALCIUM 8.5 mg/dL (8.8-10.2); CHLORIDE 103 mmol/L (98-107); COSMO 280; POTASSIUM 3.6 mmol/L (3.5-5.1); SODIUM 141 mmol/L (136-145); TCO2 28 mmol/L (25-35)
[2016-07-04] MEDS: D5 NS 1,000 ML IV SCH ×2 (09:05→18:05)
--- NOTE | 2016-07-04 10:35 | DISCHARGE SUMMARY ---
ADMISSION DATE: 06/30/2016 DISCHARGE DATE: 07/04/2016 CONSULTATIONS: Dr. Aliza Arreola with gastroenterology. PERTINENT PROCEDURES: 1. Abdomen and pelvis CT showed hemoperitoneum, worsening atelectasis or pneumonia at the left lower lobe, small right pleural effusion. 2. EGD and colonoscopy performed by Dr. Arreola. DISCHARGE DIAGNOSES: 1. Diverticulitis. Patient will continue with Levaquin and Flagyl. Follow up with Dr. Arreola. 2. Gastric atriovenous malformations, continue with proton pump inhibitor. 3. Recent diagnosis of deep venous thrombosis. Patient has inferior vena cava filter. She is not on any anticoagulation at this time secondary to a gastrointestinal bleed and having the filter in place. 4. Diabetes type 2. Continue with home medications. 5. Hypertension, chronic and stable. 6. Coronary artery disease history. 7. Hyperlipidemia history. 8. Polymyalgia rheumatica, stable. 9. Gastroesophageal reflux disease continue proton pump inhibitors. HOSPITAL COURSE: Ms. Neri is an 89-year-old female who carries a past medical history of type 2 diabetes, vascular dementia, hypertension, hyperlipidemia, coronary artery disease, vitamin D deficiency, polymyalgia rheumatica, chronic venous insufficiency, hypertension, history of DVT and PE, cricopharyngeus hypertrophy. The patient was transferred here from outpatient colonoscopy by Dr. Arreola. The patient was having abdominal pain over the last few days and weeks, so she was having a colonoscopy for definitive evaluation. It revealed diverticulitis as well as gastric AVMs. Patient was admitted to the medical floor, placed on Levaquin and Flagyl and started on a PPI b.i.d. The patient underwent an EGD and colonoscopy again on 07/01/2016 that showed erosive gastritis, hiatal hernia. She was started on Carafate, and showed ascending colon and transverse colon AVMs with bleeding status post hemostasis, garsia diverticulitis, diverticulitis in the sigmoid colon with internal and external hemorrhoids. During the colonoscopy the patient continued to have abdominal pain. Postprocedure CAT scan was remarkable for a hemoperitoneum, left lower lobe pneumonia, as well as a right pleural effusion. I have been closely monitoring her hemoglobin and hematocrit. Hemodynamically she has remained stable, and clinically the patient is doing significantly better. Her abdomen is less tender. She is tolerating her diet and patient should be able to discharge either Thursday or Thursday back to [facility]. DISCHARGE DIET: GI soft. DISCHARGE MEDICATIONS: Will be as per Dr. Weiss. Please see MAR. FOLLOW-UP: Ms. Neri will be discharged back to [facility] either Thursday or Thursday. She can follow up with her primary care physician, Dr. Kylee Siddiqui in 7-10 days, as well as Dr. Arreola in 3-4 weeks. Patient can return to the ED for any worsening of symptoms. DISCHARGE TIME: 30 minutes. Dictated by JESÚS Malone for Jorge Alberto Castellon MD cc: MD Kylee Molina MD
[2016-07-04] MEDS: LEVAQUIN 750 MG/D5W 750 MG/150 ML IVPB IV SCH (12:49)
[2016-07-04] MEDS: PREDNISONE PO SCH (12:49)
[2016-07-05] MEDS: CARAFATE LIQUID PO SCH ×4 (01:56→20:17)
[2016-07-05] MEDS: SODIUM CHLORIDE 0.9% INJ SCH ×2 (03:14→14:18)
[2016-07-05] MEDS: PROTONIX IV SCH ×2 (03:14→14:18)
[2016-07-05] MEDS: FLAGYL 250 MG/NS 250 MG/50 ML IVPB IV SCH ×4 (03:15→20:17)
[2016-07-05 06:47] LABS: MANUAL DIFF NEEDED? NO
[2016-07-05 06:53] LABS: BASO% 0.2 % (0.0-0.8); EOS# 0.08 X1000 (0.0-0.7); EOS% 1.2 % (0.0-10.0); HEMATOCRIT 38.3 % (37.0-47.0); HEMOGLOBIN 11.9 g/dL (12.0-16.0); LYMPH# 1.29 X1000 (1.2-3.4); LYMPH% 19.6 % (20.5-51.1); MCH 29.4 PG (27-31); MCHC 31.1 g/dL (33-37); MCV 94.6 FL (81-99); MONO# 0.86 X1000 (0.11-0.59); MONO% 13.1 % (1.7-9.3); MPV 11.3 FL (7.4-10.4); NEUT% 65.9 % (42.2-75.2); PLT 174 X1000 (130-400); RBC 4.05 XMIL (4.2-5.4)
[2016-07-05 07:13] LABS: AGAP 7; BUN 6 mg/dL (8-22); CALCIUM 8.6 mg/dL (8.8-10.2); CHLORIDE 106 mmol/L (98-107); COSMO 282; POTASSIUM 3.5 mmol/L (3.5-5.1); SODIUM 143 mmol/L (136-145); TCO2 30 mmol/L (25-35)
[2016-07-05] MEDS: PREDNISONE PO SCH (08:50)
[2016-07-05] MEDS: D5 NS 1,000 ML IV SCH (08:50)
--- NOTE | 2016-07-05 14:29 | PROGRESS NOTE ---
DATE: 07/05/2016 SUBJECTIVE: This patient is resting on the bed. No family members at the bedside. This patient is alert and oriented x1. Probably she has a baseline dementia. Gastroenterology Department is following this patient, her hemoglobin decreased from 12.9 to 11.9, and the plan was to discharge this patient today but because of her hemoglobin I am going to keep this patient one more day to see how she does. She has a bed at [facility]. Otherwise this patient is feeling a little bit compared with yesterday. She is still complaining of joint pain. OBJECTIVE: Vital Signs: Temperature 98.5 degrees, pulse 75, respiratory rate 16, blood pressure 153/49, oxygen saturation 100% on 2 L nasal cannula. HEENT: Head normocephalic. No trauma. PERRLA. Neck: Supple. JVD no masses. Central trachea. Chest: Clear to auscultation. No wheezing. No rales. Cardiovascular: RRR. A 2/6 systolic murmur. Abdomen: Soft, mildly tender to palpation at the level of the suprapubic area and periumbilical area. Positive bowel sounds. Extremities: No edema. No clubbing. No cyanosis. Neurological: The patient is alert and oriented x1, baseline dementia. LABORATORY: WBC 6.5, hemoglobin 11.9, hematocrit 38.3, platelets 174,000. Sodium 143, potassium 3.5, chloride 106, bicarbonate 30, BUN 6, creatinine 0.4, glucose 95, calcium 8.6. ASSESSMENT AND PLAN: 1. Diverticulitis. We will continue with Levaquin and Flagyl per Dr. Arreola's orders. So far, blood culture has been negative. Her diet had been advanced to regular diet and she is tolerating this. I will monitor the hemoglobin and hematocrit for one more day to see how she does. For the past 2 days she has been having bowel movement. 2. Gastric arteriovenous malformation. Continue with Protonix. 3. Recent diagnosis of deep venous thrombosis. This patient has an inferior vena cava filter. She is not on anticoagulation at this moment. 4. Type 2 diabetes. Continue with the same management. 5. Hypertension. This is chronic and stable. 6. History of coronary artery disease. This patient is not complaining of chest pain or shortness of breath. 7. Hyperlipidemia. Continue to monitor. 8. Polymyalgia rheumatica. She is complaining a little bit of joint pain but compared with yesterday it is much better. I restarted her home medications with prednisone. 9. Deep vein thrombosis prophylaxis. This patient has an inferior vena cava filter. 10. Known ulcer disease. Continue with Protonix. cc: Jorge Alberto Castellon MD
[2016-07-05] MEDS: MORPHINE IV PRN ×2 (18:14→21:21)
[2016-07-06] MEDS: CARAFATE LIQUID PO SCH ×2 (01:58→07:45)
[2016-07-06] MEDS: FLAGYL 250 MG/NS 250 MG/50 ML IVPB IV SCH ×2 (01:59→08:30)
[2016-07-06] MEDS: PROTONIX IV SCH (02:00)
[2016-07-06] MEDS: SODIUM CHLORIDE 0.9% INJ SCH (02:00)
[2016-07-06 06:55] LABS: MANUAL DIFF NEEDED? NO
[2016-07-06 07:03] LABS: BASO% 0.3 % (0.0-0.8); EOS# 0.15 X1000 (0.0-0.7); EOS% 2.1 % (0.0-10.0); HEMATOCRIT 39.3 % (37.0-47.0); HEMOGLOBIN 11.8 g/dL (12.0-16.0); IMM GRAN# 0.02 X1000 (0.0-0.04); IMM GRAN% 0.3 % (0.0-0.5); LYMPH# 1.56 X1000 (1.2-3.4); MCH 28.5 PG (27-31); MCV 94.9 FL (81-99); MONO# 0.87 X1000 (0.11-0.59); MONO% 12.3 % (1.7-9.3); MPV 11.1 FL (7.4-10.4); PLT 190 X1000 (130-400); RBC 4.14 XMIL (4.2-5.4)
[2016-07-06] MEDS: D5 NS 1,000 ML IV SCH (07:20)
[2016-07-06 07:47] LABS: AGAP 11; BUN 7 mg/dL (8-22); CALCIUM 8.5 mg/dL (8.8-10.2); CHLORIDE 107 mmol/L (98-107); COSMO 286; POTASSIUM 3.1 mmol/L (3.5-5.1); SODIUM 145 mmol/L (136-145); TCO2 27 mmol/L (25-35)
[2016-07-06 08:08] VITALS: BP 155/60
[2016-07-06] MEDS: PREDNISONE PO SCH (08:30)
[2016-07-06] MEDS: MORPHINE IV PRN (08:35)
[2016-07-06] MEDS ORDERED: LEVAQUIN 750 MG/D5W 750 MG/150 ML IVPB IV SCH (12:00)
[2016-07-06] MEDS ORDERED: FLAGYL PO SCH (14:00)
--- NOTE | 2016-07-06 15:45 | PROGRESS NOTE ---
DATE: 07/06/2016 SUBJECTIVE: This patient is resting comfortably on the bed. No family members at the bedside. The patient is alert and oriented x1. She is not complaining of severe pain. She is still complaining of mild joint pain but compared with the previous days is much better. The hemoglobin has been stable. [facility] will [facility]. OBJECTIVE: Vital Signs: Temperature 97.5 degrees, pulse 83, respiratory rate 20, blood pressure 155/60, oxygen saturation 95 on room air. HEENT: Head normocephalic. No trauma. PERRLA. Neck: Supple. No JVD. No masses. Central trachea. Chest: Clear to auscultation. No wheezing. No rales. Cardiovascular: RRR, 2/6 systolic murmur. Abdomen: Soft, nontender, nondistended, no hepatosplenomegaly. Positive bowel sounds. Extremities: No edema. No clubbing. No cyanosis. Neurological: The patient is alert and oriented x1. He has a baseline dementia. LABORATORY: WBC 7, hemoglobin 11.8, hematocrit 39.3, platelets 190,000. Sodium 145, potassium 3.1, chloride 107, bicarbonate 27, BUN 7, creatinine 0.4, glucose 87, calcium 8.5. ASSESSMENT AND PLAN: 1. Diverticulitis. Continue with antibiotics, follow up with Dr. Arreola. 2. Gastric arteriovenous malformation. Continue with Protonix. 3. Recent diagnosis of deep vein thrombosis. This patient has a inferior vena cava filter. 4. Type 2 diabetes. Continue with home medication. 5. Hypertension chronic and stable. 6. Coronary artery disease. 7. Hyperlipidemia. 8. Polymyalgia rheumatica. Continue with steroids. 9. Gastroesophageal reflux disease. Continue with PPI. For the rest of the discharge summary, please refer to the discharge summary done on 07/04/2016. cc: Jorge Alberto Castellon MD
[2016-07-08] MEDS ORDERED: LEVAQUIN PO SCH (12:15)
== END 2016-07-06 14:10 ==
LOC: OR 05:40 → 4N 05:40 → SUPCPDRO 09:00 → SUATTDRO 09:00 → OBSVTOIN 09:00 → 3N 20:51
PROVIDERS: ATTEND Internal Medicine
PROC: EN.HEAT (2016-06-30 07:25)